=== PATIENT | female | born 1950 | race Two or more races ===

== ENCOUNTER 2017-02-13 09:43 | Emergency (ER) | payer OTHER ==
[2017-02-13 10:02] VITALS: BP 132/99; PULSE 98; RESP 16; TEMP 98.8; O2SAT 94
--- NOTE | 2017-02-13 10:22 | UCPHY ---
H & P Time Seen by Provider: 02/13/17 09:52 Patient Type: New HPI/ROS: 67-year-old female presents complaining of sore throat, nasal congestion, slight cough, sinus infection. She states she gets sinus infections frequently she is traveling here from [place] taking care of twin grandchildren. She is most concerned about the possibly that she may have strep and does not want to spread it to her grandchildren Review of systems As per HPI-positive cold symptoms nasal congestion and sinus congestion General positive fevers positive chills no weakness HEENT no eye pain no eye discharge. 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 [place] Here in [place] visiting her grandchildren Smoking Status: Former smoker Physical Exam: 67-year-old female alert and oriented no acute distress nontoxic appearance Seated on the gurney comfortably reading her novel Alert and oriented nontoxic appearance, no acute distress afebrile Atraumatic normocephalic Extraocular muscles intact, anicteric Nares mild yellowish discharge Oropharynx mild erythema no tonsillar swelling no exudate no uvular deviation, tolerating own secretions Neck supple no lymphadenopathy Lungs clear to auscultation bilaterally Heart regular rate and rhythm Abdomen normoactive bowel sounds soft nontender Extremities no cyanosis clubbing or edema Skin no rash Constitutional: Initial Vital Signs Temperature (C) 37.1 C 02/13/17 10:00 Heart Rate 98 02/13/17 10:00 Respiratory Rate 16 02/13/17 10:00 Blood Pressure 132/99 H 02/13/17 10:00 O2 Sat (%) 94 02/13/17 10:00 O2 Delivery Mode Room Air Allergies/Adverse Reactions: Sulfa (Sulfonamide Antibiotics) Allergy (Intermediate, Verified 02/13/17 09:59) Rash Home Medications: Medication Instructions Recorded Amoxicillin/Clavulanate Pot 875 mg PO BID #20 tab 02/13/17 [Augmentin 875 MG TAB (*)] Aspirin 02/13/17 Lisinopril 02/13/17 Medical Decision Making - Diagnostics Imaging: Chest x-ray negative for infiltrate, consistent with bronchitis ED Course/Re-evaluation: Patient seen and evaluated for cough fevers chills nasal congestion sinus infections sore throat, concern for possible strep Rapid strep negative Strep culture pending Chest x-ray negative Differential diagnosis considered Strep pharyngitis, URI, viral syndrome, bronchitis, pneumonia, sinusitis Impression Sinusitis/bronchitis Plan Augmentin Follow-up PCP Return if worsens Will contact patient if strep culture is positive - Data Points Laboratory Results: 02/13/17 02/13/17 Unknown 10:00 Group A Strep Screen NEGATIVE (NEGATIVE) Group A Strep DNA Pending Departure - Departure Disposition: Home, Routine, Self-Care Clinical Impression: Sinusitis Condition: Good Instructions: Sinusitis (ED) Referrals: NONE *PRIMARY CARE P,. [Primary Care Provider] - As per Instructions Prescriptions: Amoxicillin/Clavulanate Pot [Augmentin 875 MG TAB (*)] 875 mg PO BID #20 tab - PQRS PQRS Measurement: 134: Depression screening and followup, PRIME MD-PHQ2 (12 years and older) Over the last 2 weeks, how often have you been bothered by any of the following problems? 1. Feeling down, depressed, or hopeless? 2. Little interest or pleasure in doing things? Patient answered no to both 1 and 2 130: Documentation of medications. Reviewed all patient medications, doses, route and frequency. 226: Do you smoke? No. 47: 65 and older: Advanced care planning. Patient designates surrogate decision maker as spouse.. [Patient has advanced directive.] 51: 18 years old and older with diagnosis of COPD, spirometry performance. [Patient has no history of COPD 52: 18 years old and older with COPD and symptoms of COPD or FEV1<60% predicted prescribed a B Agonist. [Spirometry not performed; equipment not available.]
== END 2017-02-13 10:55 | disposition home or self-care (01) ==
LOC: CED 09:43
DX: J32.9 Chronic sinusitis, unspecified (principal)
CPT/HCPCS: 71020; G0463; 87880-PO